=== PATIENT | female | born 1965 | race Caucasian/White ===

== ENCOUNTER 2019-05-10 05:46 | Day surgery (SDC) | payer OTHER ==
[~2019-05-10 05:46] MED LIST: COZAAR50 MG PO; INDAPAMIDE1.25 MG PO
[2019-05-10] MEDS ORDERED: NAPROXEN SODIU550 MG PO (10:50)
== END 2019-05-10 16:35 | disposition home or self-care (01) ==
LOC: CIR.AMB 05:46
DX: N84.0 Polyp of corpus uteri (principal)

== ENCOUNTER 2021-01-09 09:45 | Inpatient (IN) | payer OTHER ==
[~2021-01-09] VITALS: Ht 154.9 cm; Wt 53.5 kg
[~2021-01-09 09:45] MED LIST changes: +NAPROXEN SODIU550 MG PO
[2021-01-09] MEDS ORDERED: COZAAR50 MG PO (16:51)
[2021-01-09] MEDS ORDERED: AROMASIN25 MG PO (16:51)
[2021-01-09] MEDS ORDERED: BONIVA150 MG PO (16:52)
[2021-01-09] MEDS ORDERED: VITAMIN D31 ML PO (16:53)
[2021-01-16] MEDS ORDERED: INTESTINEX680 M1 PO (12:31)
[2021-01-16] MEDS ORDERED: MUPIROCIN15 GM TOP (12:31)
== END 2021-01-16 13:57 | disposition home or self-care (01) | DRG 334 ==
LOC: O/R 01-15 07:06 → SURG 01-15 07:06 → SURH 01-15 08:30 → SURG 01-15 14:48
PROVIDERS: ADMIT Surgery; ATTEND Surgery
PROC: 0DBP4ZZ Excision of Rectum, Percutaneous Endoscopic Approach (ICD-10-PCS; principal; 2021-01-15 08:30)
DX: D12.8 Benign neoplasm of rectum (principal); C50.911 Malignant neoplasm of unspecified site of right female breast; M81.0 Age-related osteoporosis without current pathological fracture; I10 Essential (primary) hypertension